=== PATIENT | male | born 1985 | race African-American/Black ===

== ENCOUNTER 2017-04-19 07:58 | Emergency (ER) | payer OTHER ==
[~2017-04-19] VITALS: Ht 190.5 cm; Wt 147.0 kg
[~2017-04-19 07:58] MED LIST: BP MEDICATION; METO50TA5 PO
[2017-04-19] MEDS ORDERED: METOCLOPRAMIDE HCL 10MG/2ML VIAL IM ONE (08:45)
[2017-04-19] MEDS ORDERED: KETOROLAC 60MG/2ML VIAL IM ONE (08:45)
[2017-04-19 09:26] VITALS: BP 146/88
== END 2017-04-19 10:04 | disposition home or self-care (01) ==
LOC: ER 08:45
DX: R07.9 Chest pain, unspecified (principal); R51 Headache
CPT/HCPCS: 71010; 93005; 96372; 99284; J1885; J2765

== ENCOUNTER 2017-05-23 08:50 | Emergency (ER) | payer OTHER ==
[~2017-05-23] VITALS: Ht 190.5 cm; Wt 146.0 kg
[2017-05-23 10:41] VITALS: BP 154/91
[2017-05-23] MEDS ORDERED: BACITRACIN ZINC OINT UDPKT TOP ONE (11:15)
[2017-05-23] MEDS ORDERED: TETANUS, DIPHTHERIA, PERTUSSIS VAC/PF 0.5ML (>7YR OLD) IM ONE (11:15)
[2017-05-23] MEDS ORDERED: BACITRACIN/POLYMYXIN B SULFATE OINT 15GM TOP ONE (11:15)
== END 2017-05-23 11:25 | disposition home or self-care (01) ==
LOC: ER 08:50
DX: S51.812A Laceration without foreign body of left forearm, initial encounter (principal); X95.01XA Assault by airgun discharge, initial encounter; Y93.89 Activity, other specified; Y92.811 Bus as the place of occurrence of the external cause
CPT/HCPCS: 90471; 90715; 99283; Z7610

== ENCOUNTER 2017-06-04 11:15 | Emergency (ER) | payer OTHER ==
[~2017-06-04] VITALS: Ht 190.5 cm; Wt 145.0 kg
[2017-06-04] MEDS ORDERED: SODIUM CHLORIDE 0.9% 1,000 ML IV ONE (13:43)
[2017-06-04 14:57] LABS: BASOPHILS % 1.4 % (0.0-2.0); EOSINOPHILS % 4.9 % (0.0-5.0); LYMPHOCYTES % 31.9 % (20.0-50.0); MEAN CORPUSCULAR HEMOGLOBIN 28.4 pg (28.0-32.0); MEAN PLATELET VOLUME 8.4 fl (7.4-10.4); MONOCYTES % 9.1 % (2.0-8.0); NEUTROPHILS % 52.7 % (40.0-76.0); PLATELET 256 x1000/uL (130-400); RED BLOOD CELL COUNT 4.94 mill/uL (4.7-6.1)
[2017-06-04 15:01] LABS: CARBON DIOXIDE 30 mEq/L (21-32); CHLORIDE 102 mEq/L (98-107)
[2017-06-04 16:00] VITALS: BP 148/81
== END 2017-06-04 17:53 | disposition home or self-care (01) ==
LOC: ER 14:51
DX: K52.9 Noninfective gastroenteritis and colitis, unspecified (principal)
CPT/HCPCS: 36415; 80053; 83690; 85025; 99284; J7030; Z7610

== ENCOUNTER 2017-07-12 15:55 | Emergency (ER) | payer OTHER ==
[~2017-07-12] VITALS: Ht 190.5 cm; Wt 145.0 kg
[2017-07-12 16:10] VITALS: BP 147/84
== END 2017-07-12 21:40 | disposition left against medical advice (07) ==
LOC: ER 15:55
DX: T78.40XA Allergy, unspecified, initial encounter (principal); Z53.21 Procedure and treatment not carried out due to patient leaving prior to being seen by health care provider

== ENCOUNTER 2017-08-01 10:19 | Emergency (ER) | payer OTHER ==
[~2017-08-01] VITALS: Ht 190.5 cm; Wt 145.0 kg
[2017-08-01] MEDS ORDERED: ALBUTEROL (0.083%) 2.5MG/3ML NEB HHN STA (13:11)
[2017-08-01] MEDS ORDERED: ONDANSETRON HCL 4MG TABLET PO ONE (13:30)
[2017-08-01 14:28] VITALS: BP 135/70
== END 2017-08-01 15:48 | disposition home or self-care (01) ==
LOC: ER 10:19
DX: B34.9 Viral infection, unspecified (principal); R05 Cough; R00.0 Tachycardia, unspecified
CPT/HCPCS: 71010; 93005; 94640; 99284; J7611; Q0162

== ENCOUNTER 2017-10-19 09:02 | Emergency (ER) | payer OTHER ==
[~2017-10-19] VITALS: Ht 190.5 cm; Wt 101.0 kg
[~2017-10-19 09:02] MED LIST changes: +METO-539 PO; -METO50TA5 PO
[2017-10-19] MEDS ORDERED: DEXAMETHASONE 10 MG/ML VIAL IM ONE (10:45)
[2017-10-19] MEDS ORDERED: KETOROLAC 60MG/2ML VIAL IM ONE (10:45)
[2017-10-19 10:54] VITALS: BP 144/77
== END 2017-10-19 11:32 | disposition home or self-care (01) ==
LOC: ER 09:10
DX: M54.12 Radiculopathy, cervical region (principal); M25.511 Pain in right shoulder
CPT/HCPCS: 96372; 99284; J1100; J1885; Z7610

== ENCOUNTER 2018-02-02 08:17 | Emergency (ER) | payer OTHER ==
[~2018-02-02] VITALS: Ht 193 cm; Wt 159.0 kg
[2018-02-02] MEDS ORDERED: SODIUM CHLORIDE 0.9% 1,000 ML IV ONE (09:42)
[2018-02-02] MEDS ORDERED: KETOROLAC 30MG/ML VIAL IV STA (09:42)
[2018-02-02 10:04] LABS: BASOPHILS % 1.4 % (0.0-2.0); EOSINOPHILS % 4.9 % (0.0-5.0); HEMATOCRIT. 41.7 % (42.0-52.0); HEMOGLOBIN. 13.6 g/dL (14.0-18.0); LYMPHOCYTES % 32.8 % (20.0-50.0); MEAN CORPUSCULAR HEMOGLOBIN 27.8 pg (28.0-32.0); MEAN PLATELET VOLUME 8.1 fl (7.4-10.4); MONOCYTES % 8.4 % (2.0-8.0); NEUTROPHILS % 52.5 % (40.0-76.0); PLATELET 275 x1000/uL (130-400); RED CELL DISTRIBUTION WIDTH 14.3 % (11.6-14.6)
[2018-02-02 10:12] LABS: PARTIAL THROMBOPLASTIN TIME 28.9 sec (23.4-31.0); PROTHROMBIN TIME 10.6 sec (9.4-11.6)
[2018-02-02 10:16] LABS: CHLORIDE 104 mEq/L (98-107)
[2018-02-02 12:02] LABS: *AMPHETAMINES SCREEN URINE NEGATIVE (NEGATIVE); *BENZODIAZEPINES SCREEN URINE NEGATIVE (NEGATIVE); *COCAINE SCREEN URINE NEGATIVE (NEGATIVE); CANNABINOID URINE SCREEN NEGATIVE (NEGATIVE); METHADONE URINE SCREEN NEGATIVE (NEGATIVE); OPIATES URINE SCREEN NEGATIVE (NEGATIVE); PHENCYCLIDINE URINE SCREEN NEGATIVE (NEGATIVE)
[2018-02-02 12:04] LABS: *BARBITURATES SCREEN URINE NEGATIVE (NEGATIVE)
[2018-02-02 12:06] VITALS: BP 125/64
== END 2018-02-02 12:42 | disposition home or self-care (01) ==
LOC: ER 08:44
DX: R07.9 Chest pain, unspecified (principal); I10 Essential (primary) hypertension; E66.9 Obesity, unspecified
CPT/HCPCS: 36415; 71045; 80048; 80305; 83880; 84484; 85025; 85610; 85730; 93005; 96361; 96374; 99285; J1885; J7030; Z7610

== ENCOUNTER 2018-10-29 09:11 | Emergency (ER) | payer OTHER, MEDICAID ==
[~2018-10-29] VITALS: Ht 193 cm; Wt 159.0 kg
[2018-10-29 09:46] VITALS: BP 132/96
== END 2018-10-29 10:57 | disposition home or self-care (01) ==
LOC: ER 09:11
DX: S46.911A Strain of unspecified muscle, fascia and tendon at shoulder and upper arm level, right arm, initial encounter (principal); R07.89 Other chest pain; X58.XXXA Exposure to other specified factors, initial encounter; Y93.89 Activity, other specified; Y92.89 Other specified places as the place of occurrence of the external cause; Y99.8 Other external cause status
CPT/HCPCS: 71045; 93005; 99283

== ENCOUNTER 2018-12-21 19:59 | Emergency (ER) | payer OTHER, MEDICAID ==
[~2018-12-21] VITALS: Ht 182.9 cm; Wt 145.0 kg
[2018-12-21] MEDS ORDERED: IBUPROFEN 600MG TABLET PO ONE (20:30)
[2018-12-21 21:10] VITALS: BP 128/70
== END 2018-12-21 22:24 | disposition home or self-care (01) ==
LOC: ER 19:59
DX: S93.401A Sprain of unspecified ligament of right ankle, initial encounter (principal); Z79.899 Other long term (current) drug therapy; W18.39XA Other fall on same level, initial encounter; Y93.89 Activity, other specified; Y92.89 Other specified places as the place of occurrence of the external cause; Y99.8 Other external cause status
CPT/HCPCS: 73610; 99283; Z7610

== ENCOUNTER 2019-02-14 08:41 | Emergency (ER) | payer OTHER, MEDICAID ==
[~2019-02-14] VITALS: Ht 190.5 cm; Wt 170.0 kg
[2019-02-14] MEDS ORDERED: MORPHINE SULFATE 4 MG/ML CPJ (NOT FOR IM USE) IV STA (10:24)
[2019-02-14] MEDS ORDERED: ONDANSETRON HCL 4MG/2ML INJ IV STA (10:24)
[2019-02-14] MEDS ORDERED: NITROGLYCERIN OINT 1GM/INCH UDPKT TD ONE (10:30)
[2019-02-14] MEDS ORDERED: ASPIRIN 81MG TABLET PO ONE (10:30)
[2019-02-14 11:02] LABS: HEMATOCRIT. 45.5 % (42.0-52.0); HEMOGLOBIN. 15.3 g/dL (14.0-18.0); LYMPHOCYTES % 35.5 % (20.0-50.0); MEAN CORPUSCULAR HEMOGLOBIN 28.8 pg (28.0-32.0); MEAN CORPUSCULAR VOLUME 85.5 fL (80.0-94.0); MEAN PLATELET VOLUME 8.3 fl (7.4-10.4); MONOCYTES % 7.2 % (2.0-8.0); NEUTROPHILS % 51.3 % (40.0-76.0); PLATELET 272 x1000/uL (130-400); RED BLOOD CELL COUNT 5.32 mill/uL (4.7-6.1); RED CELL DISTRIBUTION WIDTH 14.5 % (11.6-14.6)
[2019-02-14 11:08] LABS: CHLORIDE 105 mEq/L (98-107)
[2019-02-14 14:21] VITALS: BP 139/87
== END 2019-02-14 14:56 | disposition short-term general hospital (02) ==
LOC: ER 08:41
DX: R07.89 Other chest pain (principal); I10 Essential (primary) hypertension; E66.01 Morbid (severe) obesity due to excess calories; Z68.42 Body mass index [BMI] 45.0-49.9, adult
CPT/HCPCS: 36415; 71045; 80053; 83880; 84484; 85025; 93005; 96374; 96375; 99285; J2270; J2405